=== PATIENT | male | born 1995 | race Caucasian/White ===

== ENCOUNTER 2017-02-28 18:50 | Emergency (ER) | payer OTHER ==
[~2017-02-28] VITALS: Ht 193 cm; Wt 79.4 kg
--- NOTE | 2017-02-28 19:05 | NUR ---
REPORT RECEIVED FROM DAYSHIFT NURSE, PT IS ALERT, ORIENTED X 3, NO RESP DISTRESS NOTED OR REPORTED UPON ASSESSMENT... WILL MONITOR PT FOR SAFETY, PAIN AND COMFORT...
--- NOTE | 2017-02-28 19:20 | NUR ---
CLAY ASKED PTS GIRLFRIEND TO LEAVE ROOM SHE WAS INTERRUPTING DR AND THE PT , BEING ARGUMENTATIVE... GIRLFRIEND WAS ASKED TO WAIT IN WAITING ROOM, SECURITY CALLED....
--- NOTE | 2017-02-28 19:40 | NUR ---
PT LEAVING ER PRIOR TO GETTING URINE RESULTS HIS GIRLFRIEND WAS THREATENING TO LEAVE PT HERE WITHOUT A RIDE HOME, PT ADVISED HE CAN CALL IN FOR RESULTS, ERMD ADVISED IF HE CHANGES HIS MIND TO PLEASE RETURN FOR PROPER EXAMINATION...
[2017-02-28 19:45] LABS: *BLOOD, URINE Trace-lysed (NEGATIVE); *CLARITY,URINE SLIGHTLY CLOUDY (CLEAR); *COLOR,URINE YELLOW (YELLOW); *KETONES,URINE NEGATIVE (NEGATIVE); *PROTEIN,URINE 2+ (NEGATIVE); *UROBILINOGEN,URINE 0.2 E.U./dl (NORMAL); LEUKOCYTE ESTERASE ,URINE NEGATIVE (NEGATIVE); NITRITE, URINE NEGATIVE (NEGATIVE); PH,URINE 5.5 (5.0-8.0); UGLUCOSE NEGATIVE (NEGATIVE)
--- NOTE | 2017-02-28 20:02 | NUR ---
Patient discharged to home in stable conditon. Written and verbal after care instructions given. Patient verbalizes understanding of instructions. pt walked out of ER unassisted with belongings at side...
[2017-02-28 20:10] LABS: *BILIRUBIN,URIN 1+ (NEGATIVE)
[2017-02-28 20:11] LABS: BACTERIA,URINE RARE /HPF (NONE SEEN); RBC,URINE 0-3 /HPF (0-3); SQUAMOUS EPITHELIAL CELL,UR FEW /HPF (NONE SEEN)
[2017-02-28 20:21] VITALS: BP 115/91
== END 2017-02-28 20:23 | disposition home or self-care (01) ==
LOC: ER 18:51
DX: J02.9 Acute pharyngitis, unspecified (principal); M54.9 Dorsalgia, unspecified
CPT/HCPCS: A4663

== ENCOUNTER 2017-03-03 19:04 | Emergency (ER) | payer OTHER ==
[~2017-03-03] VITALS: Ht 193 cm; Wt 79.4 kg
[2017-03-03] MEDS ORDERED: AMPH15TA2 PO (19:15)
[2017-03-03] MEDS ORDERED: VICODIN PO (19:15)
--- NOTE | 2017-03-03 19:37 | NUR ---
Patient discharged to home in stable conditon. Written and verbal after care instructions given. Patient verbalizes understanding of instructions.
== END 2017-03-03 19:46 | disposition home or self-care (01) ==
LOC: ER 19:07
DX: Z76.0 Encounter for issue of repeat prescription (principal); G89.29 Other chronic pain; R07.9 Chest pain, unspecified; F11.10 Opioid abuse, uncomplicated
CPT/HCPCS: A4663

== ENCOUNTER 2017-04-24 19:44 | Emergency (ER) | payer MEDICAID, OTHER ==
[~2017-04-24] VITALS: Ht 193 cm; Wt 79.4 kg
[~2017-04-24 19:44] MED LIST: AMPH15TA2 PO; VICODIN PO
--- NOTE | 2017-04-24 20:14 | NUR ---
Patient discharged to home in stable conditon WITH RX OF NORCO 10-325MG TABLETS. Written and verbal after care instructions given. Patient verbalizes understanding of instructions.
== END 2017-04-24 20:16 | disposition home or self-care (01) ==
LOC: ER 19:44
DX: Z76.0 Encounter for issue of repeat prescription (principal); R07.9 Chest pain, unspecified
CPT/HCPCS: A4663

== ENCOUNTER 2017-10-03 18:33 | Emergency (ER) | payer MEDICAID, OTHER ==
[~2017-10-03] VITALS: Ht 193 cm; Wt 79.4 kg
[2017-10-03] MEDS ORDERED: HYDR-548 PO (18:53)
--- NOTE | 2017-10-03 19:15 | NUR ---
PT IN BED. A&OX4. BREATH SOUNDS REGULAR AND UNLABORED. PT STATES THAT HE HAS BEEN SUFFERING FROM CHRONIC MIGRAINES SINCE HAVING HEART SURGERY 2 YRS AGO. HE IS HERE TODAY FOR PAIN MED REFILL. PT AWAITING MD RUELAS.
--- NOTE | 2017-10-03 19:54 | NUR ---
MD MARIE AT BEDSIDE COMPLETING MED EVAL
--- NOTE | 2017-10-03 20:16 | NUR ---
Patient discharged to home in stable conditon. Written and verbal after care instructions given. Patient verbalizes understanding of instructions.
== END 2017-10-03 20:11 | disposition home or self-care (01) ==
LOC: ER 18:34
DX: G89.29 Other chronic pain (principal); R07.89 Other chest pain; Z76.0 Encounter for issue of repeat prescription; F90.9 Attention-deficit hyperactivity disorder, unspecified type; F17.200 Nicotine dependence, unspecified, uncomplicated
CPT/HCPCS: A4663

== ENCOUNTER 2017-10-26 01:59 | Emergency (ER) | payer OTHER ==
[~2017-10-26] VITALS: Ht 193 cm; Wt 81.6 kg
[~2017-10-26 01:59] MED LIST changes: +HYDR-548 PO; -VICODIN PO
--- NOTE | 2017-10-26 02:10 | NUR ---
Patient was triaged. Patient left without being seen by ER physician.
== END 2017-10-26 02:12 | disposition left against medical advice (07) ==
LOC: ER 02:05
DX: Z53.21 Procedure and treatment not carried out due to patient leaving prior to being seen by health care provider (principal)
CPT/HCPCS: A4663

== ENCOUNTER 2019-05-28 16:29 | Emergency (ER) | payer MEDICAID, OTHER ==
[~2019-05-28] VITALS: Ht 190.5 cm; Wt 83.0 kg
[~2019-05-28 16:29] MED LIST changes: +HYDR-4354 PO; -HYDR-548 PO
--- NOTE | 2019-05-28 17:05 | NUR ---
PT STATED THAT HE IS NOT TAKING ANY MEDICATION CURENTLY.
--- NOTE | 2019-05-28 17:39 | NUR ---
Patient is resting comfortably in bed with eyes closed, NAD noted.
--- NOTE | 2019-05-28 18:33 | NUR ---
Patient left without being seen by ER physician.
== END 2019-05-28 18:34 | disposition left against medical advice (07) ==
LOC: ER 16:29
DX: Z53.21 Procedure and treatment not carried out due to patient leaving prior to being seen by health care provider (principal)
CPT/HCPCS: A4663